=== PATIENT | male | born 1960 | race Two or more races ===

== ENCOUNTER 2022-06-27 23:21 | Emergency (ER) | payer MEDICAID, OTHER ==
[~2022-06-27] VITALS: Ht 170.2 cm; Wt 83.6 kg
[2022-06-28] MEDS ORDERED: ACETAMINOPHEN 500 MG TABLET PO ONE
[2022-06-28 01:04] VITALS: BP 135/78
== END 2022-06-28 01:30 | disposition home or self-care (01) ==
LOC: EMS 23:24
DX: M16.11 Unilateral primary osteoarthritis, right hip (principal); M25.551 Pain in right hip; Z59.00 Homelessness unspecified; F15.10 Other stimulant abuse, uncomplicated; Z90.49 Acquired absence of other specified parts of digestive tract
CPT/HCPCS: 73502; 99283